=== PATIENT | male | born 1960 | race Caucasian/White ===

== ENCOUNTER → 2020-03-02 | Outpatient (CLI) | payer BC ==
--- NOTE | 2020-03-02 14:46 | RAD ---
EXAM DESCRIPTION: Left knee, single view CLINICAL HISTORY: PAIN IN LEFT KNEE FINDINGS/ IMPRESSION: Single frontal radiograph is technically limited. No fracture. Mild varus of the knee. Mild medial joint space narrowing. No advanced arthrosis Electronically signed by: Luis Lee MD 03/02/2020 2:44 PM [facility]
--- NOTE | 2020-03-02 14:47 | RAD ---
EXAM DESCRIPTION: Pelvis, single radiograph CLINICAL HISTORY: HIP PAIN FINDINGS/ IMPRESSION: No advanced arthrosis or focal osteochondral lesion No fracture. Normal mineralization and contour of the femoral head bilaterally Mild osteoarthritis bilateral sacroiliac joints. Electronically signed by: Luis Lee MD 03/02/2020 2:46 PM [facility]
== END ==
LOC: RAD 09:10
PROVIDERS: ATTEND Orthopaedic Surgery
DX: M47.898 Other spondylosis, sacral and sacrococcygeal region (principal); M21.162 Varus deformity, not elsewhere classified, left knee; M25.9 Joint disorder, unspecified